=== PATIENT | female | born 1960 | race Caucasian/White ===

== ENCOUNTER 2017-02-16 16:16 | Inpatient (IN) | payer MEDICARE ==
[~2017-02-16] VITALS: Ht 152.4 cm; Wt 55.2 kg
[~2017-02-16 16:16] MED LIST: CITA20TA4 PO; CYAN1000P IM; LAMO25TA PO; LEVO125T3 PO; METO25 PO; PRAV20 PO; QUET100 PO; REME30TA PO; TOPI100T PO
[2017-02-16 16:25] VITALS: BP 115/74; PULSE 72; RESP 16; TEMP 98.6; O2SAT 95
[2017-02-16] MEDS ORDERED: ACETAMINOPHEN/HYDROcodone 325 MG/5 MG TAB PO ONE (16:45)
[2017-02-16] MEDS ORDERED: SODIUM CHLORIDE 0.9% FLUSH 10 ML FLUSH IVF PRN (16:45)
[2017-02-16 17:01] LABS: AUTOMATED NEUTROPHIL # 7.6 TH/MM3 (1.8-7.7); BASOPHIL # 0.2 TH/MM3 (0-0.2); BASOPHIL % 2.2 % (0.0-2.0); EOSINOPHIL # 0.2 TH/MM3 (0-0.4); EOSINOPHIL % 1.8 % (0.0-4.0); HEMO FLAGS DIFF FINAL; LYMPH % 21.9 % (9.0-44.0); LYMPHOCYTE # 2.3 TH/MM3 (1.0-4.8); MEAN CELL VOLUME 100.7 FL (80.0-100.0); MEAN CORPUSCULAR HEMOGLOBIN 34.1 PG (27.0-34.0); MEAN CORPUSCULAR HGB CONC 33.8 % (32.0-36.0); MONO % 3.6 % (0.0-8.0); NEUT % 70.5 % (16.0-70.0); PLATELET COUNT 237 TH/MM3 (150-450); RED BLOOD COUNT 4.47 MIL/MM3 (4.00-5.30); RED CELL DISTRIBUTION WIDTH 13.3 % (11.6-17.2); WHITE BLOOD COUNT 10.7 TH/MM3 (4.0-11.0)
--- NOTE | 2017-02-16 17:02 | PD ---
HPI Chief Complaint: Pain: Acute or Chronic Time Seen by Provider: 16:29 Travel History International Travel<30 days: No Contact w/Intl Traveler<30days: No Traveled to known affect area: No History of Present Illness HPI patient is a 56-year-old female tripped and fall while getting out of a lifted truck week ago. She states that it right on her knee. Initially ambulatory she 's had increased problems walking over the past week as well as swelling around her knee and calf. She states she's not had any shortness of breath and no history of blood clots. She is concerned that she might actually broke her kneecap. No history of STDs fever vaginal discharge or vaginal bleeding. Denies any head injury or neck injury. PFSH Past Medical History Hx Anticoagulant Therapy: No Bipolar Disorder: Yes Depression: Yes Cardiovascular Problems: Yes (CHOL) High Cholesterol: Yes Diabetes: No Endocrine: Yes Genitourinary: No Hypertension: Yes Musculoskeletal: No Neurologic: No Reproductive: No Respiratory: No Immunizations Current: Yes Thyroid Disease: Yes ?: Not Past Surgical History Abdominal Surgery: No Cardiac Surgery: No Genitourinary Surgery: No Gynecologic Surgery: Yes (hysterectomy) Hysterectomy: Yes Pacemaker: No Thoracic Surgery: No Other Surgery: Yes Social History Alcohol Use: No Tobacco Use: Yes (1ppd) Substance Use: No Allergies-Medications (Allergen,Severity, Reaction): Coded Allergies: penicillin G (Unverified Allergy, Severe, Anaphylaxis, 02/16/17) Reported Meds & Prescriptions Reported Meds & Active Scripts Active Reported Cyanocobalamin Inj (Cyanocobalamin) 1,000 Mcg/Ml Inj 1,000 Mcg SQ Q30D Cyanocobalamin Inj (Cyanocobalamin) 1,000 Mcg/Ml Inj 1,000 Mcg IM Q30D Lamotrigine 200 Mg Tab 200 Mg PO BID Topiramate 50 Mg Tab 100 Mg PO BID Mirtazapine 30 Mg Tab 30 Mg PO HS Levothyroxine (Levothyroxine Sodium) 125 Mcg Tab 125 Mcg PO DAILY Pravastatin 40 Mg Tab 40 Mg PO HS Metoprolol Tartrate 25 Mg Tab 25 Mg PO BID Citalopram (Citalopram Hydrobromide) 40 Mg Tab 60 Mg PO HS Review of Systems Except as stated in HPI: all other systems reviewed are Neg Physical Exam Narrative GENERAL: Well-developed well-nourished, no obvious distress. Smells cigarette smoke. SKIN: Focused skin assessment warm/dry. HEAD: Atraumatic. Normocephalic. EYES: Pupils equal and round. No scleral icterus. No injection or drainage. ENT: No nasal bleeding or discharge. Mucous membranes pink and moist. NECK: Trachea midline. No JVD. CARDIOVASCULAR: Regular rate and rhythm. No murmur appreciated. RESPIRATORY: No accessory muscle use. Clear to auscultation. Breath sounds equal bilaterally. GASTROINTESTINAL: Abdomen soft, non-tender, nondistended. Hepatic and splenic margins not palpable. MUSCULOSKELETAL: No obvious deformities. No clubbing. No cyanosis. There is a fair joint effusion and some warmth to the right knee is certainly not hot, no wound appreciated, some tenderness over the patella. Patient is able to flex the knee but is unable to extend.. No laxity of the joint. There is also some swelling over the calf on the right side, pulses motor and sensory intact distal to the knee and bilateral lower extremities.. The compartments are soft in the right lower extremity. No tenderness at the ankle nor the hip. Denies CT or L-spine tenderness. NEUROLOGICAL: Awake and alert. No obvious cranial nerve deficits. Motor grossly within normal limits. Normal speech. PSYCHIATRIC: Appropriate mood and affect; insight and judgment normal. Data Data Last Documented VS Vital Signs Date Time Temp Pulse Resp B/P (MAP) Pulse Ox O2 Delivery O2 Flow Rate FiO2 02/16/17 18:20 68 16 118/64 (82) 96 Room Air 02/16/17 16:25 98.6 Orders Orders Basic Metabolic Panel (Bmp) (02/16/17 16:41) Complete Blood Count With Diff (02/16/17 16:41) Prothrombin Time / Inr (Pt) (02/16/17 16:41) Act Partial Throm Time (Ptt) (02/16/17 16:41) Ecg Monitoring (02/16/17 16:41) Iv Access Insert/Monitor (02/16/17 16:41) Oximetry (02/16/17 16:41) Oxygen Administration (02/16/17 16:41) Sodium Chloride 0.9% Flush (Ns Flush) (02/16/17 16:45) Acetamin-Hydrocod 325-5 Mg (Swan 5-325 (02/16/17 16:45) Knee, Complete (4vws) (02/16/17 ) Us Leg Venous Doppler (02/16/17 16:41) ^ Knee Immobilizer (02/16/17 17:50) Consult Orthopedic (02/16/17 ) Electrocardiogram (02/16/17 ) Chest, Single Ap (02/16/17 ) Admit Order (Ed Use Only) (02/16/17 ) Labs Laboratory Tests Test 02/16/17 16:50 White Blood Count 10.7 TH/MM3 Red Blood Count 4.47 MIL/MM3 Hemoglobin 15.2 GM/DL Hematocrit 45.0 % Mean Corpuscular Volume 100.7 FL Mean Corpuscular Hemoglobin 34.1 PG Mean Corpuscular Hemoglobin Concent 33.8 % Red Cell Distribution Width 13.3 % Platelet Count 237 TH/MM3 Mean Platelet Volume 7.9 FL Neutrophils (%) (Auto) 70.5 % Lymphocytes (%) (Auto) 21.9 % Monocytes (%) (Auto) 3.6 % Eosinophils (%) (Auto) 1.8 % Basophils (%) (Auto) 2.2 % Neutrophils # (Auto) 7.6 TH/MM3 Lymphocytes # (Auto) 2.3 TH/MM3 Monocytes # (Auto) 0.4 TH/MM3 Eosinophils # (Auto) 0.2 TH/MM3 Basophils # (Auto) 0.2 TH/MM3 CBC Comment DIFF FINAL Differential Comment Prothrombin Time 10.7 SEC Prothromb Time International Ratio 1.1 RATIO Activated Partial Thromboplast Time 28.7 SEC Blood Urea Nitrogen 7 MG/DL Creatinine 0.80 MG/DL Random Glucose 94 MG/DL Calcium Level 9.4 MG/DL Sodium Level 138 MEQ/L Potassium Level 3.7 MEQ/L Chloride Level 108 MEQ/L Carbon Dioxide Level 23.7 MEQ/L Anion Gap 6 MEQ/L Estimat Glomerular Filtration Rate 74 ML/MIN MDM Medical Decision Making Medical Screen Exam Complete: Yes Emergency Medical Condition: Yes Differential Diagnosis Fall, contusion, sprain, strain, knee fracture, hemarthrosis, septic arthritis highly unlikely, DVT. Narrative Course Patient roomed emergency department, x-rays confirm a transverse fracture of the patella, patient unable to extend her knee, she does have some swelling of the lower extremity DVT is considered, ultrasound negative. Basic labs ordered , EKG and chest x-ray for preoperative screening, patient discussed with Dr. Grady who recommends admission to the main hospital for operative intervention tomorrow morning. Nothing by mouth after midnight, patient feeling better after pain medicine. Diagnosis Primary Impression: Transverse fracture of patella Qualified Codes: S82.031A - Displaced transverse fracture of right patella, initial encounter for closed fracture Admitting Information Admitting Physician Requests: Admit Scripts Hydrocodone/Acetaminophen (Hydrocodone-Acetamin 5-325 mg) 5 Mg-325 Mg Tablet 1 TAB PO Q4H Y for PAIN LESS THAN 5 ON SCALE, #40 TAB Prov: Ruben Severino MD 02/17/[address] (Aspirin EC) 325 Mg Tabdr 325 MG PO BID for Prevent Blood Clot, #60 TAB Prov: Ruben Severino MD 02/17/17 Condition: Stable Anjum Nair MD Feb 16, 2017 17:02
[2017-02-16] MEDS ORDERED: TOPI50TA7 PO (17:04)
[2017-02-16] MEDS ORDERED: PRAV40TA2 PO (17:04)
[2017-02-16] MEDS ORDERED: CITA40TA4 PO (17:04)
[2017-02-16] MEDS ORDERED: CYAN1000P IM (17:04)
[2017-02-16] MEDS ORDERED: LEVO125T4 PO (17:04)
[2017-02-16] MEDS ORDERED: MIRT30TA PO (17:04)
[2017-02-16] MEDS ORDERED: CYAN1000P SQ (17:04)
[2017-02-16] MEDS ORDERED: LAMO200T PO (17:04)
[2017-02-16] MEDS ORDERED: METO25TA3 PO (17:04)
[2017-02-16 17:06] VITALS: O2SAT 97
[2017-02-16 17:09] LABS: POTASSIUM 3.7 MEQ/L (3.5-5.1)
[2017-02-16 17:14] LABS: APTT (PATIENT) 28.7 SEC (24.3-30.1); INTERNATIONAL NORMALIZED RATIO 1.1 RATIO; PROTHROMBIN TIME - PATIENT 10.7 SEC (9.8-11.6)
[2017-02-16 17:15] LABS: BICARBONATE 23.7 MEQ/L (21.0-32.0)
[2017-02-16 17:20] VITALS: BP 123/74; PULSE 74; RESP 18; O2SAT 97
--- NOTE | 2017-02-16 17:38 | RADRPT ---
EXAM DATE/TIME: 02/16/2017 16:57 [facility] COMPARISON: No previous studies available for comparison. INDICATIONS : Trauma, fall forward. MEDICAL HISTORY : None. SURGICAL HISTORY : None. ENCOUNTER: Initial ACUITY: 1 week PAIN SCORE: 10/10 LOCATION: Right patella FINDINGS: A comminuted distracted fracture of the patella is identified. There is significant prepatellar soft tissue swelling and a moderate to large joint effusion. The distal femur and proximal tibia are intact. CONCLUSION: 1. Distracted fracture of the patella. 2. Large joint effusion and prepatellar soft tissue swelling. Eric Dunham MD on February 16, 2017 at 17:36 Board Certified Radiologist. This report was verified electronically.
--- NOTE | 2017-02-16 18:07 | RADRPT ---
EXAM DATE/TIME: 02/16/2017 17:30 [facility] COMPARISON: No previous studies available for comparison. INDICATIONS : Right leg pain. MEDICAL HISTORY : Hypercholesterolemia. Hypertension. Thyroid disease. Bipolar disorder. Depression. Tobacco use. SURGICAL HISTORY : Hysterectomy. Cholecystectomy. Blood transfusions. ENCOUNTER: Initial ACUITY: 1 week PAIN SCORE: 9/10 LOCATION: Right leg. TECHNIQUE: Venous ultrasound of the leg was performed from the inguinal ligament to the proximal calf. Real-meka e, color Doppler and spectral tracing, compression and augmentation techniques were used. FINDINGS: There is normal compressibility of the deep venous system from the inguinal region to the proximal ca lf. No echogenic clot is seen in the lumen of the common femoral, femoral, popliteal, and posterior tibial veins. There is a normal response of the venous system to proximal and distal augmentation an d respiration. There is a popliteal cyst measuring 2.1 x 0.9 x 1.8 cm. CONCLUSION: 1. No evidence of deep venous thrombosis within the right lower extremity. 2. 2.1 x 0.9 x 1.8 cm right popliteal cyst. Anujm Noguera MD on February 16, 2017 at 18:05 Board Certified Radiologist. This report was verified electronically.
[2017-02-16 18:20] VITALS: BP 118/64; PULSE 68; RESP 16; O2SAT 96
[2017-02-16] MEDS ORDERED: SODIUM CHLORIDE 0.9% FLUSH 10 ML FLUSH IV FLUSH PRN (20:00)
[2017-02-16] MEDS ORDERED: NALOXONE HCL 0.4 MG/ML AMP IV PUSH PRN (20:00)
[2017-02-16] MEDS: MORPHINE SULFATE 2 MG/ML INJ IV PUSH PRN (20:20)
[2017-02-16] MEDS: SODIUM CHLORIDE 0.9% FLUSH 10 ML FLUSH IV FLUSH SCH (20:20)
[2017-02-16 21:08] VITALS: BP 125/72; PULSE 64; RESP 16; O2SAT 94
--- NOTE | 2017-02-16 21:54 | RADRPT ---
EXAM DATE/TIME: 02/16/2017 19:39 [facility] COMPARISON: CHEST SINGLE AP, January 16, 2015, 23:07. INDICATIONS : Short of breath. MEDICAL HISTORY : None. SURGICAL HISTORY : None. ENCOUNTER: Initial ACUITY: 1 day PAIN SCORE: 0/10 LOCATION: Bilateral chest FINDINGS: A single view of the chest demonstrates the lungs to be symmetrically aerated without evidence of mas s, infiltrate or effusion. The cardiomediastinal contours are unremarkable. Osseous structures are intact. CONCLUSION: No acute disease. Anjum Noguera MD on February 16, 2017 at 21:53 Board Certified Radiologist. This report was verified electronically.
[2017-02-17] VITALS (10 sets, daily range): BP systolic 105–140; BP diastolic 61–79; PULSE 58–120; RESP 16; TEMP 97.2–98.4; O2SAT 93–98
[2017-02-17] MEDS: MORPHINE SULFATE 2 MG/ML INJ IV PUSH PRN ×3 (00:07→09:24)
[2017-02-17] MEDS ORDERED: POVIDONE IODINE 5% (ANTISEPSIS KIT) 4 APPLICATIONS EACH NARE PRN (00:45)
[2017-02-17] MEDS ORDERED: METOPROLOL TARTRATE 25 MG TAB PO PRN (00:45)
[2017-02-17] MEDS ORDERED: CHLORHEXIDINE GLUCONATE 2 % 1 PACK (2 CLOTHS) TOPICAL PRN (00:45)
[2017-02-17] MEDS ORDERED: SODIUM CHLORID 0.9% 500 ML IV PRN (00:45)
[2017-02-17] MEDS ORDERED: LACTATED RINGER'S 1000 ML IV PRN (00:45)
[2017-02-17] MEDS ORDERED: INSULIN HUMAN REGULAR 1,000 UNITS/10 ML VIAL SQ PRN (00:45)
[2017-02-17] MEDS: SODIUM CHLORIDE 0.9% FLUSH 10 ML FLUSH IV FLUSH SCH ×2 (09:21→20:42)
[2017-02-17] MEDS ORDERED: BISACODYL 10 MG SUPP RECTAL PRN (09:30)
[2017-02-17] MEDS ORDERED: ACETAMINOPHEN/HYDROcodone 325 MG/10 MG TAB PO PRN (09:30)
[2017-02-17] MEDS ORDERED: MAGNESIUM HYDROXIDE SUSP 30 ML CUP PO PRN ×2 (09:30→14:30)
[2017-02-17] MEDS ORDERED: LACTULOSE SYRUP 20 GM/30 ML CUP PO PRN (09:30)
[2017-02-17] MEDS ORDERED: ENALAPRILAT 1.25 MG/ML VIAL IV PUSH PRN (09:30)
[2017-02-17] MEDS ORDERED: LORazepam 2 MG/ML VIAL IV PUSH PRN (09:30)
[2017-02-17] MEDS ORDERED: ACETAMINOPHEN/HYDROcodone 325 MG/5 MG TAB PO PRN ×2 (09:30→14:30)
[2017-02-17] MEDS ORDERED: ONDANSETRON HCL 4 MG/2 ML VIAL IVP PRN ×2 (09:30→14:30)
[2017-02-17] MEDS ORDERED: cloNIDine HCL 0.1 MG TAB PO PRN (09:30)
[2017-02-17] MEDS ORDERED: METOPROLOL TARTRATE 25 MG TAB PO ONE (09:30)
[2017-02-17] MEDS ORDERED: MORPHINE SULFATE 2 MG/ML INJ IV PUSH PRN ×2 (09:30)
[2017-02-17] MEDS ORDERED: ACETAMINOPHEN 325 MG TAB PO PRN ×2 (09:30)
[2017-02-17] MEDS: lamoTRIgine 100 MG TAB PO SCH ×2 (09:30→20:42)
[2017-02-17] MEDS ORDERED: SENNOSIDES 8.6 MG TAB PO PRN (09:30)
[2017-02-17] MEDS ORDERED: TOPIRAMATE 25 MG TAB PO SCH (09:30)
--- NOTE | 2017-02-17 09:44 | HHI.HP ---
[facility] Luis M Lyons MD Admission Diagnosis Patella Fracture Diagnoses: Chief Complaint: Right knee pain Travel History International Travel<30 Days: No Contact w/Intl Traveler <30 Da: No Traveled to Known Affected Are: No History of Present Illness This is a 56-year-old female with a history of bipolar disorder, hyperlipidemia , hypertension and hypothyroidism. About a week ago, she was getting off from a lifted truck when she slipped and fell on her right knee. She then developed pain and swelling with difficulty ambulating. She reports of severe excruciating right knee pain when she walks and bears weight. Denies any other injury. Workup shows patella fracture and orthopedic surgery plans to do surgical repair today. All other systems negative Review of Systems Except as stated in HPI: all other systems reviewed are Neg Past Family Social History Past Medical History As previously mentioned Past Surgical History Hysterectomy Reported Medications Reported Meds & Active Scripts Active Reported Cyanocobalamin Inj (Cyanocobalamin) 1,000 Mcg/Ml Inj 1,000 Mcg SQ Q30D Cyanocobalamin Inj (Cyanocobalamin) 1,000 Mcg/Ml Inj 1,000 Mcg IM Q30D Lamotrigine 200 Mg Tab 200 Mg PO BID Topiramate 50 Mg Tab 100 Mg PO BID Mirtazapine 30 Mg Tab 30 Mg PO HS Levothyroxine (Levothyroxine Sodium) 125 Mcg Tab 125 Mcg PO DAILY Pravastatin 40 Mg Tab 40 Mg PO HS Metoprolol Tartrate 25 Mg Tab 25 Mg PO BID Citalopram (Citalopram Hydrobromide) 40 Mg Tab 60 Mg PO HS Allergies: Coded Allergies: penicillin G (Unverified Allergy, Severe, Anaphylaxis, 02/16/17) Family History hypertension Social History Smokes a pack per day. Does not use alcohol Physical Exam Vital Signs Vital Signs Date Time Temp Pulse Resp B/P (MAP) Pulse Ox O2 Delivery O2 Flow Rate FiO2 02/17/17 08:00 97.5 74 16 122/74 (90) 93 02/17/17 05:04 97.5 61 16 125/61 (82) 96 02/17/17 01:07 98.4 65 16 140/75 (96) 97 02/17/17 00:51 58 02/16/17 21:08 64 16 125/72 (89) 94 Room Air 02/16/17 20:36 16 02/16/17 18:20 68 16 118/64 (82) 96 Room Air 02/16/17 17:58 16 02/16/17 17:20 74 18 123/74 (90) 97 Room Air 02/16/17 17:06 97 Room Air 02/16/17 17:06 Room Air 02/16/17 16:25 98.6 72 16 115/74 (88) 95 Physical Exam GENERAL: This is a well-nourished, well-developed patient, in no apparent distress. SKIN: No rashes, ecchymoses or lesions. Cool and dry. HEAD: Atraumatic. Normocephalic. No temporal or scalp tenderness. EYES: Pupils equal round and reactive. Extraocular motions intact. No scleral icterus. No injection or drainage. ENT: Nose without bleeding, purulent drainage or septal hematoma. Throat without erythema, tonsillar hypertrophy or exudate. Uvula midline. Airway patent. NECK: Trachea midline. No JVD or lymphadenopathy. Supple, nontender, no meningeal signs. CARDIOVASCULAR: Regular rate and rhythm without murmurs, gallops, or rubs. RESPIRATORY: Clear to auscultation. Breath sounds equal bilaterally. No wheezes , rales, or rhonchi. GASTROINTESTINAL: Abdomen soft, non-tender, nondistended. No guarding. MUSCULOSKELETAL: Extremities without clubbing, cyanosis, or edema. Right knee in immobilizer NEUROLOGICAL: Awake and alert. Cranial nerves II through XII intact. Motor and sensory grossly within normal limits. Five out of 5 muscle strength in all muscle groups. Normal speech. Laboratory Laboratory Tests Test 02/16/17 16:50 02/17/17 08:54 White Blood Count 10.7 Red Blood Count 4.47 Hemoglobin 15.2 Hematocrit 45.0 Mean Corpuscular Volume 100.7 Mean Corpuscular Hemoglobin 34.1 Mean Corpuscular Hemoglobin Concent 33.8 Red Cell Distribution Width 13.3 Platelet Count 237 Mean Platelet Volume 7.9 Neutrophils (%) (Auto) 70.5 Lymphocytes (%) (Auto) 21.9 Monocytes (%) (Auto) 3.6 Eosinophils (%) (Auto) 1.8 Basophils (%) (Auto) 2.2 Neutrophils # (Auto) 7.6 Lymphocytes # (Auto) 2.3 Monocytes # (Auto) 0.4 Eosinophils # (Auto) 0.2 Basophils # (Auto) 0.2 CBC Comment DIFF FINAL Differential Comment Prothrombin Time 10.7 Prothromb Time International Ratio 1.1 Activated Partial Thromboplast Time 28.7 Blood Urea Nitrogen 7 Creatinine 0.80 Random Glucose 94 Calcium Level 9.4 Sodium Level 138 Potassium Level 3.7 Chloride Level 108 Carbon Dioxide Level 23.7 Anion Gap 6 Estimat Glomerular Filtration Rate 74 Result Diagram: 02/16/17 [id number]/171649 Imaging Last Impressions Lower Extremity Ultrasound 02/16/17 164 Signed Impressions: Service Date/Time: Thursday, February 16, 2017 17:30 - CONCLUSION: 1. No evidence of deep venous thrombosis within the right lower extremity. 2. 2.1 x 0.9 x 1.8 cm right popliteal cyst. Anjum Noguera MD Knee X-Ray 02/16/17 0000 Signed Impressions: Service Date/Time: Thursday, February 16, 2017 16:57 - CONCLUSION: 1. Distracted fracture of the patella. 2. Large joint effusion and prepatellar soft tissue swelling. Eric Dunham MD Chest X-Ray 02/16/17 0000 Signed Impressions: Service Date/Time: Thursday, February 16, 2017 19:39 - CONCLUSION: No acute disease. Anjum Noguera MD Caprini VTE Risk Assessment Caprini VTE Risk Assessment: Mod/High Risk (score >= 2) Caprini Risk Assessment Model Point Value = 1 Point Value = 2 Point Value = 3 Point Value = 5 Age 41-60 Minor surgery BMI > 25 kg/m2 Swollen legs Varicose veins or History of unexplained or recurrent spontaneous Oral contraceptives or hormone replacement Sepsis (< 1 month) Serious lung disease, including pneumonia (< 1 month) Abnormal pulmonary function Acute myocardial infarction Congestive heart failure (< 1 month) History of inflammatory bowel disease Medical patient at bed rest Age 61-74 Arthroscopic surgery Major open surgery (> 45 min) Laparoscopic surgery (> 45 min) Malignancy Confined to bed (> 72 hours) Immobilizing plaster cast Central venous access Age >= 75 History of VTE Family history of VTE Factor V Leiden Prothrombin [id number] Lupus anticoagulant Anticardiolipin antibodies Elevated serum homocysteine Heparin-induced thrombocytopenia Other congenital or acquired thrombophilia Stroke (< 1 month) Elective arthroplasty Hip, pelvis, or leg fracture Acute spinal cord injury (< 1 month) Prophylaxis Regimen Total Risk Factor Score Risk Level Prophylaxis Regimen 0-1 Low Early ambulation 2 Moderate Order ONE of the following: *Sequential Compression Device (SCD) *Heparin 5000 units SQ BID 3-4 Higher Order ONE of the following medications: *Heparin 5000 units SQ TID *Enoxaparin/Lovenox 40 mg SQ daily (WT < 150 kg, CrCl > 30 mL/min) *Enoxaparin/Lovenox 30 mg SQ daily (WT < 150 kg, CrCl > 10-29 mL/min) *Enoxaparin/Lovenox 30 mg SQ BID (WT < 150 kg, CrCl > 30 mL/min) AND/OR *Sequential Compression Device (SCD) 5 or more Highest Order ONE of the following medications: *Heparin 5000 units SQ TID (Preferred with Epidurals) *Enoxaparin/Lovenox 40 mg SQ daily (WT < 150 kg, CrCl > 30 mL/min) *Enoxaparin/Lovenox 30 mg SQ daily (WT < 150 kg, CrCl > 10-29 mL/min) *Enoxaparin/Lovenox 30 mg SQ BID (WT < 150 kg, CrCl > 30 mL/min) AND *Sequential Compression Device (SCD) Assessment and Plan Problem List: (1) Transverse fracture of patella ICD Code: S82.033A - Displaced transverse fracture of unspecified patella, initial encounter for closed fracture Status: Acute Assessment and Plan This is a 56-year-old female who complained of right knee pain after she slipped and fell on her right knee. Imaging study shows patella fracture Right patella fracture status post fall. Nothing by mouth for surgical repair. Pain management with Lortab and IV morphine. DVT prophylaxis per orthopedic surgery. Chest x-ray image reviewed without acute findings. EKG tracing reviewed with sinus rhythm Bipolar disorder. Stable continue Lamictal, Topamax, Celexa and Remeron Hyperlipidemia. Stable continue Pravachol. Hypertension. Stable continue metoprolol Hypothyroidism. Stable continue Synthroid Tobacco abuse. Counseled. Nicotinic patch Discussed Condition With pt Problem Qualifiers (1) Transverse fracture of patella: Qualified Codes: S82.031A - Displaced transverse fracture of right patella, initial encounter for closed fracture Luis M Vines MD Feb 17, 2017 09:44
[2017-02-17] MEDS: REMOVE OLD PATCH T-DERMAL SCH (09:45)
[2017-02-17] MEDS: NICOTINE 21 MG/24 HR PATCH T-DERMAL SCH (09:45)
[2017-02-17 10:02] LABS: BICARBONATE 22.2 MEQ/L (21.0-32.0); POTASSIUM 3.6 MEQ/L (3.5-5.1)
[2017-02-17 10:08] LABS: AUTOMATED NEUTROPHIL # 4.4 TH/MM3 (1.8-7.7); BASOPHIL % 0.4 % (0.0-2.0); EOSINOPHIL # 0.1 TH/MM3 (0-0.4); HEMATOCRIT 46.4 % (35.0-46.0); HEMO FLAGS DIFF FINAL; LYMPHOCYTE # 2.2 TH/MM3 (1.0-4.8); MEAN CELL VOLUME 104.1 FL (80.0-100.0); MEAN CORPUSCULAR HEMOGLOBIN 34.4 PG (27.0-34.0); MEAN CORPUSCULAR HGB CONC 33.1 % (32.0-36.0); MONO % 6.5 % (0.0-8.0); NEUT % 60.1 % (16.0-70.0); PLATELET COUNT 209 TH/MM3 (150-450); RED BLOOD COUNT 4.45 MIL/MM3 (4.00-5.30); RED CELL DISTRIBUTION WIDTH 13.9 % (11.6-17.2); WHITE BLOOD COUNT 7.3 TH/MM3 (4.0-11.0)
[2017-02-17] MEDS: TOPIRAMATE 100 MG TAB PO SCH ×2 (10:50→20:42)
[2017-02-17] MEDS ORDERED: FAMOTIDINE 20 MG/2 ML VIAL ONE (12:44)
[2017-02-17] MEDS ORDERED: ACETAMINOPHEN 1000 MG/100 ML 100 ML IV ONE (12:45)
[2017-02-17] MEDS ORDERED: CLINDAMYCIN PHOS 600 MG/4 ML VIAL ONE (13:09)
[2017-02-17] MEDS ORDERED: GENTAMICIN SULFATE 80 MG/2 ML VIAL ONE (13:44)
--- NOTE | 2017-02-17 14:25 | PD.CONS ---
HPI Service Orthopedic Surgeons Consult Requested By Reason for Consult Fracture of the right patella Primary Care Physician Luis M Lyons MD Admission Diagnosis Patella Fracture Diagnoses: (1) Transverse fracture of patella Chief Complaint: Pain in the right knee after fall and swelling with weakness History of Present Illness This patient is a 56-year-old female who several days ago fell sustaining an injury to her right knee. She initially did not seek medical attention. She noted progressive weakness discomforts and swelling. She presented to [facility] emergency room yesterday. X-rays showed evidence of a mildly comminuted transverse patella fracture. She was admitted to the medical service and I have been asked see her in consultation regarding her right patella fracture Review of Systems Constitutional: DENIES: Diaphoretic episodes, Fatigue, Fever, Weight gain, Weight loss, Chills, Dizziness, Change in appetite, Night Sweats Endocrine: DENIES: Abnorml menstrual pattern, Heat/cold intolerance, Polydipsia , Polyuria, Polyphagia Eyes: DENIES: Blurred vision, Diplopia, Eye inflammation, Eye pain, Vision loss , Photosensitivity, Double Vision Ears, nose, mouth, throat: DENIES: Tinnitus, Hearing loss, Vertigo, Nasal discharge, Oral lesions, Throat pain, Hoarseness, Ear Pain, Running Nose, Epistaxis, Sinus Pain, Toothache, Odynophagia Respiratory: DENIES: Apneas, Cough, Snoring, Wheezing, Hemoptysis, Sputum production, Shortness of breath Cardiovascular: DENIES: Chest pain, Palpitations, Syncope, Dyspnea on Exertion , PND, Lower Extremity Edema, Orthopnea, Claudication Gastrointestinal: DENIES: Abdominal pain, Black stools, Bloody stools, Constipation, Diarrhea, Nausea, Vomiting, Difficulty Swallowing, Anorexia Genitourinary: DENIES: Abnormal vaginal bleeding, Dysmenorrhea, Dyspareunia, Sexual dysfunction, Urinary frequency, Urinary incontinence, Urgency, Hematuria , Dysuria, Nocturia, Vaginal discharge Musculoskeletal: COMPLAINS OF: Joint pain Integumentary: DENIES: Abnormal pigmentation, Pruritus, Rash, Nail changes, Breast masses, Breast skin changes, Nipple discharge Hematologic/lymphatic: DENIES: Bruising, Lymphadenopathy Immunologic/allergic: DENIES: Eczema, Urticaria Neurologic: DENIES: Abnormal gait, Headache, Localized weakness, Paresthesias, Seizures, Speech Problems, Tremor, Poor Balance Psychiatric: DENIES: Anxiety, Confusion, Mood changes, Depression, Hallucinations, Agitation, Suicidal Ideation, Homicidal Ideation, Delusions Past Family Social History Past Medical History As previously mentioned Past Surgical History Hysterectomy Allergies: Coded Allergies: penicillin G (Unverified Allergy, Severe, Anaphylaxis, 02/16/17) Active Ordered Medications Current Medications Medications (Trade) Dose Ordered Sig/Jerad Route Start Time Stop Time Status Last Admin (NS Flush) 2 ml UNSCH PRN IV FLUSH 02/16/17 20:00 (NS Flush) 2 ml BID IV FLUSH 02/16/17 21:00 02/17/17 09:21 (Narcan Inj) 0.4 mg UNSCH PRN IV PUSH 02/16/17 20:00 (Morphine Inj) 2 mg Q3H PRN IV PUSH 02/16/17 20:00 02/17/17 09:24 Lactated Ringer's 1,000 ml @ 30 mls/hr Q24H PRN IV 02/17/17 00:45 02/20/17 00:44 Sodium Chloride 500 ml @ 30 mls/hr [id number] PRN IV 02/17/17 00:45 02/20/17 00:44 (Lopressor) 25 mg [employer]OVELTY [employer]ING MACHINE OPERATOR PRN PO 02/17/17 00:45 02/20/17 00:44 (Betadine 5% Antisepsis Kit) 1 applic [employer]EL[employer]ING MACHINE OPERATOR PRN EACH NARE 02/17/17 00:45 02/20/17 00:44 (Chlorhexidine 2% Cloth) 3 pack [employer]ING MACHINE OPERATOR PRN TOPICAL 02/17/17 00:45 02/20/17 00:44 (NovoLIN R INJ) See Protocol Table ... [employer]OVEL[employer]ING MACHINE OPERATOR PRN SQ 02/17/17 00:45 02/20/17 00:44 (Tylenol) 650 mg Q4H PRN PO 02/17/17 09:30 (Zofran Inj) 4 mg Q6H PRN IVP 02/17/17 09:30 (Tylenol) 650 mg Q6H PRN PO 02/17/17 09:30 (Bivins 5-325 Mg) 1 tab Q4H PRN PO 02/17/17 09:30 (Bivins 10-325 Mg) 1 tab Q4H PRN PO 02/17/17 09:30 (Morphine Inj) 1 mg Q3H PRN IV PUSH 02/17/17 09:30 (Morphine Inj) 2 mg Q3H PRN IV PUSH 02/17/17 09:30 (Gely-Colace) 1 tab BID PO 02/17/17 21:00 (Milk Of Magnesia Liq) 30 ml Q12H PRN PO 02/17/17 09:30 (Senokot) 17.2 mg Q12H PRN PO 02/17/17 09:30 (Dulcolax Supp) 10 mg DAILY PRN RECTAL 02/17/17 09:30 (Lactulose Liq) 30 ml DAILY PRN PO 02/17/17 09:30 (Vasotec Inj) 1.25 mg Q6H PRN IV PUSH 02/17/17 09:30 (Catapres) 0.1 mg Q6H PRN PO 02/17/17 09:30 (CeleXA) 60 mg HS PO 02/17/17 21:00 (LaMICtal) 200 mg BID PO 02/17/17 09:30 (Synthroid) 125 mcg DAILY@0600 PO 02/18/17 06:00 (Lopressor) 25 mg BID PO 02/17/17 21:00 (Remeron) 30 mg HS PO 02/17/17 21:00 (Pravachol) 40 mg HS PO 02/17/17 21:00 (Habitrol 21 Mg Patch.24 Hr) 1 patch DAILY T-DERMAL 02/17/17 09:45 Miscellaneous Information 1 DAILY T-DERMAL 02/17/17 09:45 (Topamax) 100 mg BID PO 02/17/17 10:50 Reported Meds & Active Scripts Active Reported Cyanocobalamin Inj (Cyanocobalamin) 1,000 Mcg/Ml Inj 1,000 Mcg SQ Q30D Cyanocobalamin Inj (Cyanocobalamin) 1,000 Mcg/Ml Inj 1,000 Mcg IM Q30D Lamotrigine 200 Mg Tab 200 Mg PO BID Topiramate 50 Mg Tab 100 Mg PO BID Mirtazapine 30 Mg Tab 30 Mg PO HS Levothyroxine (Levothyroxine Sodium) 125 Mcg Tab 125 Mcg PO DAILY Pravastatin 40 Mg Tab 40 Mg PO HS Metoprolol Tartrate 25 Mg Tab 25 Mg PO BID Citalopram (Citalopram Hydrobromide) 40 Mg Tab 60 Mg PO HS Family History hypertension Social History Smokes a pack per day. Does not use alcohol Physical Exam Vital Signs Vital Signs Date Time Temp Pulse Resp B/P (MAP) Pulse Ox O2 Delivery O2 Flow Rate FiO2 02/17/17 08:00 97.5 74 16 122/74 (90) 93 02/17/17 05:04 97.5 61 16 125/61 (82) 96 02/17/17 01:07 98.4 65 16 140/75 (96) 97 02/17/17 00:51 58 02/16/17 21:08 64 16 125/72 (89) 94 Room Air 02/16/17 20:36 16 02/16/17 18:20 68 16 118/64 (82) 96 Room Air 02/16/17 17:58 16 02/16/17 17:20 74 18 123/74 (90) 97 Room Air 02/16/17 17:06 97 Room Air 02/16/17 17:06 Room Air 02/16/17 16:25 98.6 72 16 115/74 (88) 95 Physical Exam HEENT: Normocephalic atraumatic pupils equal round reactive. NECK: Supple. No abnormal masses. Full range of motion. CHEST: Clear to auscultation with no rales or rhonchi's or wheezes. HEART: Regular rate and rhythm. No murmurs. ABDOMEN: Soft, nontender, no masses. Normal active bowel sounds. GENITOURINARY: Deferred MUSCULOSKELETAL: Right knee is in a knee immobilizer. Mild swelling is seen. Distal sensation is normal. No skin changes. Dorsalis pedis 1+. Laboratory Laboratory Tests Test 02/16/17 16:50 02/17/17 08:54 White Blood Count 10.7 7.3 Red Blood Count 4.47 4.45 Hemoglobin 15.2 15.3 Hematocrit 45.0 46.4 Mean Corpuscular Volume 100.7 104.1 Mean Corpuscular Hemoglobin 34.1 34.4 Mean Corpuscular Hemoglobin Concent 33.8 33.1 Red Cell Distribution Width 13.3 13.9 Platelet Count 237 209 Mean Platelet Volume 7.9 8.0 Neutrophils (%) (Auto) 70.5 60.1 Lymphocytes (%) (Auto) 21.9 31.0 Monocytes (%) (Auto) 3.6 6.5 Eosinophils (%) (Auto) 1.8 2.0 Basophils (%) (Auto) 2.2 0.4 Neutrophils # (Auto) 7.6 4.4 Lymphocytes # (Auto) 2.3 2.2 Monocytes # (Auto) 0.4 0.5 Eosinophils # (Auto) 0.2 0.1 Basophils # (Auto) 0.2 0.0 CBC Comment DIFF FINAL DIFF FINAL Differential Comment Prothrombin Time 10.7 Prothromb Time International Ratio 1.1 Activated Partial Thromboplast Time 28.7 Blood Urea Nitrogen 7 11 Creatinine 0.80 0.69 Random Glucose 94 89 Calcium Level 9.4 9.1 Sodium Level 138 140 Potassium Level 3.7 3.6 Chloride Level 108 112 Carbon Dioxide Level 23.7 22.2 Anion Gap 6 6 Estimat Glomerular Filtration Rate 74 88 Result Diagram: 02/17/17 0854 02/17/17 0854 Imaging X-rays reviewed and review of the radiologist interpretation shows evidence of a mildly comminuted transverse fracture of the right patella with moderate displacement of greater than 1.5 cm Assessment & Plan Assessment and Plan Fracture right patella, displaced, transverse, mildly comminuted. PLAN: Surgical treatment or open treatment internal fixation with cannulated screws and cerclage wires using modified tension band technique. Consent: There are risks with surgery including infection bleeding loss of motion, continued pain, need for further surgery, failure proper, failure of fixation, neurologic or vascular injury. The patient understands these issues and wishes to proceed forward with surgery as outlined above. Anticipate enteric coated aspirin for approximately 30 days after surgery. She will be partial weightbearing with a knee immobilizer. Ruben Severino MD Feb 17, 2017 14:25
[2017-02-17] MEDS ORDERED: MORPHINE SULFATE 8 MG/ML INJ IV PUSH PRN (14:30)
[2017-02-17] MEDS ORDERED: NALOXONE HCL 0.4 MG/ML AMP IV PUSH PRN (14:30)
[2017-02-17] MEDS ORDERED: diphenhydrAMINE HCL 25 MG CAP PO PRN (14:30)
[2017-02-17] MEDS ORDERED: Post-op Orders (for Pharmacy) MISC XX ONE (14:30)
--- NOTE | 2017-02-17 14:30 | PD.OP ---
cc: Ruben Severino MD Operative Report Date of Surgery: Feb 17, 2017 Preoperative Diagnosis: Fracture right patella, transverse, comminuted Postoperative Diagnosis: Same Procedure: Open treatment internal fixation right patella fracture with cannulated screws and modified tension band technique Anesthesia: Gen. Surgeon: Ruben Severino Technical Adjuster(s): BROOKLYNN Holt Operation and Findings: EBL: 50 cc INDICATION: This patient is a 56-year-old female who injured her right knee several days ago. She presented to the emergency from yesterday was found have evidence of a displaced patella fracture. She presents now for surgical treatment. NOTE: Ana Holt PA-C was present for the entire surgical procedure as my physician assistant psychiatry. In my medical opinion her skill and care was necessary for the proper management of this patient. PROCEDURE: The patient brought to the operating room and anesthetized in the supine position. The right leg was visualized under fluoroscopy. Antibiotics were given within an one hour time window and a timeout was done. After exsanguination, the interval tourniquet was inflated to 250 mmHg. An anterior incision was made. The patella was exposed. Callus was curetted. The fragment was brought into reduced position and held. Multiple clamps were utilized using fluoroscopy to confirm that there was good continuity of the articular surface. Multiple pins were used for provisional fixation anticipating cannulated screws. These were carefully measured and the proximal cortex was drilled. Screws were placed approximately 1-2 mm just short of the cortical surface. 18-gauge wire was placed through the cannulated screws. A total of 3 screws were utilized. A modified tension band technique was used using the outer 2 screws and a single tension band in the middle screw. There was moderate comminution but this technique allowed us to brought back to near anatomic position. The fascia was closed with interrupted #1 Vicryl suture The wound was irrigated copiously and hemostasis was controlled. Intraoperative imaging showed anatomic reduction. Alignment was satisfactory. Subcutaneous tissue was approximated with number with interrupted 2-0 Vicryl suture and skin with metallic donald. A knee immobilizer was fitted and applied. The patient was awakened and taken to recovery room satisfactory condition. The sponge count and needle count and sponge counts were all correct FINDINGS: The patient's patella fracture was moderately comminuted. The tension band technique held everything in very satisfactory alignment and position. There was no complication that was appreciated. Ruben Severino MD Feb 17, 2017 14:29
[2017-02-17] MEDS ORDERED: ASPI325T33 PO (14:31)
[2017-02-17] MEDS ORDERED: HYDR-3516 PO (14:31)
[2017-02-17] MEDS ORDERED: DO NOT ADM ANY ANTICOAGULANT DRUGS PRN (14:44)
[2017-02-17] MEDS: LACTATED RINGER'S 1000 ML INJ 1,000 ML IV SCH (15:00)
[2017-02-17] MEDS ORDERED: *morphine SULFATE 8 MG/ML PERIprocedure ONLY ONE (15:09)
--- NOTE | 2017-02-17 15:59 | RADRPT ---
EXAM DATE/TIME: 02/17/2017 14:09 [place] COMPARISON: No previous studies available for comparison. INDICATIONS : Right patella fracture repair with screws and wire wrap. OR. MEDICAL HISTORY : Hypertension. SURGICAL HISTORY : None. ENCOUNTER: Initial ACUITY: 1 day PAIN SCORE: Non-responsive. LOCATION: Right patella FINDINGS: Two view examination intraoperative OEC images of the right knee demonstrate 3 osseous screws and cer clage wires securing an apparent patellar fracture. Fracture fragments are in excellent anatomic alig nment. CONCLUSION: Open reduction and internal fixation of patellar fracture as above. Albert Corey MD on February 17, 2017 at 15:57 Board Certified Radiologist. This report was verified electronically.
--- NOTE | 2017-02-17 16:04 | EKG ---
Date Performed: 02/16/2017 Time Performed: 19:43:15 PTAGE: 56 years EKG: Sinus rhythm NORMAL ECG Since PREVIOUS TRACING , no significant change noted PREVIOUS TRACIN01/17/2015 04.54 DOCTOR: Geraldo Vasques Interpretating Date/Time 02/17/2017 16:03:14
[2017-02-17] MEDS: CALCIUM/VITAMIN D 250 MG/125 U TAB PO SCH (18:00)
[2017-02-17] MEDS: ASPIRIN EC 325 MG TABEC PO SCH (20:36)
[2017-02-17] MEDS: METOPROLOL TARTRATE 25 MG TAB PO SCH (20:36)
[2017-02-17] MEDS: DOCUSATE SODIUM 50 MG/SENNA 8.6 MG TAB PO SCH (20:40)
[2017-02-17] MEDS ORDERED: PRAVASTATIN SOD 40 MG TAB PO SCH (21:00)
[2017-02-17] MEDS ORDERED: MIRTAZAPINE 15 MG TAB PO SCH (21:00)
[2017-02-17] MEDS ORDERED: DOCUSATE SODIUM 50 MG/SENNA 8.6 MG TAB PO SCH (21:00)
[2017-02-17] MEDS ORDERED: CITALOPRAM HYDROBROMIDE 20 MG TAB PO SCH (21:00)
[2017-02-17] MEDS ORDERED: CLINDAMYCIN 600 MG/DEX PREMIX 50 ML IV SCH (22:30)
[2017-02-17] MEDS: CLINDAMYCIN 600 MG/NS PREMIX 50 ML IV SCH (23:12)
[2017-02-18] VITALS (9 sets, daily range): BP systolic 119–138; BP diastolic 64–72; PULSE 60–72; RESP 16–17; TEMP 96.5–97.9; O2SAT 95–96
[2017-02-18] MEDS: LACTATED RINGER'S 1000 ML INJ 1,000 ML IV SCH ×2 (00:19→10:19)
[2017-02-18] MEDS: ACETAMINOPHEN/HYDROcodone 325 MG/5 MG TAB PO PRN ×3 (00:25→17:38)
[2017-02-18] MEDS ORDERED: LEVOTHYROXINE SODIUM 125 MCG TAB PO SCH (06:00)
[2017-02-18] MEDS: CLINDAMYCIN 600 MG/NS PREMIX 50 ML IV SCH (06:28)
--- NOTE | 2017-02-18 08:04 | PD.ORT.PN ---
Subjective Post Op Day #: 1 Subjective Remarks Doing well. Lying in bed. Pain under control Objective Vitals Vital Signs Date Time Temp Pulse Resp B/P (MAP) Pulse Ox O2 Delivery O2 Flow Rate FiO2 02/18/17 04:00 97.4 67 17 119/64 (82) 96 02/18/17 03:58 62 02/18/17 00:45 64 02/18/17 00:00 96.5 68 16 123/65 (84) 95 02/17/17 20:00 97.6 64 16 105/79 (88) 97 02/17/17 19:43 77 02/17/17 17:05 97 Nasal Cannula 2.00 02/17/17 16:30 97.2 120 16 125/78 (94) 98 02/17/17 16:15 97.6 60 16 148/75 (99) 97 Nasal Cannula 2 02/17/17 16:00 59 16 147/70 (95) 96 Nasal Cannula 2 02/17/17 15:45 57 16 150/73 (98) 95 Nasal Cannula 2 02/17/17 15:30 59 16 156/78 (104) 95 Nasal Cannula 2 02/17/17 15:15 58 16 157/81 (106) 98 Nasal Cannula 3 02/17/17 15:00 62 17 165/79 (107) 96 Nasal Cannula 3 02/17/17 14:50 69 17 160/77 (104) 95 Nasal Cannula 3 02/17/17 14:44 97.5 71 18 174/78 (110) 98 Simple Mask 7 02/17/17 12:00 97.8 60 16 115/65 (82) 98 02/17/17 09:20 58 I/O 02/17/17 02/17/17 02/17/17 02/18/17 02/18/17 02/18/17 07:00 15:00 23:00 07:00 15:00 23:00 Intake Total 1000 ml 480 ml 600 ml Output Total 50 ml Balance 950 ml 480 ml 600 ml Intake Oral 480 ml 600 ml IV Total 1000 ml Estimated Blood Loss 50 ml # Voids 0 2 Result Diagram: 02/17/17 0854 02/17/17 0854 Objective Remarks Dressing dry. Mild swelling. Neurological exam is normal. No abnormal distal swelling or calf tenderness Assessment & Plan Ortho Post Op Day #: 1 Problem List: Assessment and Plan Fracture right patella, displaced, transverse, mildly comminuted. PLAN: 50% weightbearing. No dressing change. Okay to discharge to home. Aspirin for anticoagulation. Hoffman for pain. Prescription written. Follow-up in 2 weeks. Will need Walker Ruben Severino MD Feb 18, 2017 08:04
--- NOTE | 2017-02-18 08:16 | HHI.DCPOC ---
Discharge Care Plan Diagnosis: (1) Transverse fracture of patella Your Health Problems Are: Difficulty with ADL Exercise Tolerance Goals to Promote Your Health * To prevent worsening of your condition and complications * To maintain your health at the optimal level Directions to Meet Your Goals Take your medications as prescribed Follow your dietary instruction Follow activity as directed Keep your appointments as scheduled Take your immunizations and boosters as scheduled If your symptoms worsen call your PCP, if no PCP go to Urgent Care Center or Emergency Room Smoking is Dangerous to Your Health. Avoid second hand smoke Call the 24-hour hour crisis hotline for domestic abuse at Luis M Vines MD Feb 18, 2017 08:16
--- NOTE | 2017-02-18 08:16 | HHI.FF ---
Face to Face Verification Diagnosis: (1) Transverse fracture of patella Physical Therapy Order: Evaluate and Treat, Improve ambulation, Strength and gait training Home Health Nursing Order: Medical education Signs/symptoms of disease process Medication education-adverse effect Wound care and dressing changes Nursing assessment with vital signs I have seen patient Winter Tarango on 02/18/17. My clinical findings support the need for the requested home health care services because: Deconditioned w/ increased weakness I certify that my clinical findings support that this patient is homebound because: Unsteady gait/balance Luis M Vines MD Feb 18, 2017 08:16
[2017-02-18] MEDS ORDERED: WALKER WHEELS/F1 MIS (08:18)
[2017-02-18] MEDS: REMOVE OLD PATCH T-DERMAL SCH (09:00)
[2017-02-18] MEDS ORDERED: MULTIVITAMINS/MINERALS THERAPEUTIC TAB PO SCH (09:00)
--- NOTE | 2017-02-18 09:11 | HHI.PR ---
Subjective Remarks Follow-up patellar fracture. She is doing okay pain under control. She is cleared for discharge by orthopedic surgery. Discussed with RN Objective Vitals Vital Signs Date Time Temp Pulse Resp B/P (MAP) Pulse Ox O2 Delivery O2 Flow Rate FiO2 02/18/17 07:25 96.8 60 16 138/64 (88) 95 02/18/17 04:00 97.4 67 17 119/64 (82) 96 02/18/17 03:58 62 02/18/17 00:45 64 02/18/17 00:00 96.5 68 16 123/65 (84) 95 02/17/17 20:00 97.6 64 16 105/79 (88) 97 02/17/17 19:43 77 02/17/17 17:05 97 Nasal Cannula 2.00 02/17/17 16:30 97.2 120 16 125/78 (94) 98 02/17/17 16:15 97.6 60 16 148/75 (99) 97 Nasal Cannula 2 02/17/17 16:00 59 16 147/70 (95) 96 Nasal Cannula 2 02/17/17 15:45 57 16 150/73 (98) 95 Nasal Cannula 2 02/17/17 15:30 59 16 156/78 (104) 95 Nasal Cannula 2 02/17/17 15:15 58 16 157/81 (106) 98 Nasal Cannula 3 02/17/17 15:00 62 17 165/79 (107) 96 Nasal Cannula 3 02/17/17 14:50 69 17 160/77 (104) 95 Nasal Cannula 3 02/17/17 14:44 97.5 71 18 174/78 (110) 98 Simple Mask 7 02/17/17 12:00 97.8 60 16 115/65 (82) 98 02/17/17 09:20 58 I/O 02/17/17 02/17/17 02/17/17 02/18/17 02/18/17 02/18/17 06:59 14:59 22:59 06:59 14:59 22:59 Intake Total 1000 ml 480 ml 600 ml Output Total 50 ml Balance 950 ml 480 ml 600 ml Intake Oral 480 ml 600 ml IV Total 1000 ml Estimated Blood Loss 50 ml # Voids 0 2 Result Diagram: 02/17/17 0854 02/17/17 0854 Imaging Last Impressions Knee X-Ray 02/17/17 0000 Signed Impressions: Service Date/Time: February 14:09 - CONCLUSION: Open reduction and internal fixation of patellar fracture as above. Albert Corey MD Lower Extremity Ultrasound 02/16/17 1641 Signed Impressions: Service Date/Time: Thursday, February 16, 2017 17:30 - CONCLUSION: 1. No evidence of deep venous thrombosis within the right lower extremity. 2. 2.1 x 0.9 x 1.8 cm right popliteal cyst. Anjum Noguera MD Chest X-Ray 02/16/17 0000 Signed Impressions: Service Date/Time: Thursday, February 16, 2017 19:39 - CONCLUSION: No acute disease. Anjum Noguera MD Objective Remarks GENERAL: This is a well-nourished, well-developed patient, in no apparent distress. SKIN: No rashes, ecchymoses or lesions. Cool and dry. CARDIOVASCULAR: Regular rate and rhythm without murmurs, gallops, or rubs. RESPIRATORY: Clear to auscultation. Breath sounds equal bilaterally. No wheezes , rales, or rhonchi. GASTROINTESTINAL: Abdomen soft, non-tender, nondistended. No guarding. MUSCULOSKELETAL: Extremities without clubbing, cyanosis, or edema. Right knee in immobilizer NEUROLOGICAL: Awake and alert. Cranial nerves II through XII intact. Motor and sensory grossly within normal limits. Five out of 5 muscle strength in all muscle groups. Normal speech. Procedures ORIF right patella A/P Problem List: (1) Transverse fracture of patella ICD Code: S82.033A - Displaced transverse fracture of unspecified patella, initial encounter for closed fracture Status: Acute Assessment and Plan This is a 56-year-old female who complained of right knee pain after she slipped and fell on her right knee. Imaging study shows patella fracture Right patella fracture status post fall. Doing okay after ORIF. Continue postoperative care with PT 50% weight-bearing right lower extremity, Lortab and DVT prophylaxis with aspirin per orthopedic surgery. Bipolar disorder. Stable continue Lamictal, Topamax, Celexa and Remeron Hyperlipidemia. Stable continue Pravachol. Hypertension. Stable continue metoprolol Hypothyroidism. Stable continue Synthroid Tobacco abuse. Counseled. Nicotinic patch Discharge Planning Discharge patient to home Condition on discharge: Improved Regular Diet as tolerated Ad Toma activity no driving Rx written: Aspirin and Lortab Follow-up with primary care physician and orthopedic surgery Problem Qualifiers (1) Transverse fracture of patella: Qualified Codes: S82.031A - Displaced transverse fracture of right patella, initial encounter for closed fracture Luis M Vines MD Feb 18, 2017 09:11
[2017-02-18] MEDS: NICOTINE 21 MG/24 HR PATCH T-DERMAL SCH (09:49)
[2017-02-18] MEDS: DOCUSATE SODIUM 50 MG/SENNA 8.6 MG TAB PO SCH (09:49)
[2017-02-18] MEDS: ASPIRIN EC 325 MG TABEC PO SCH (09:50)
[2017-02-18] MEDS: lamoTRIgine 100 MG TAB PO SCH (09:50)
[2017-02-18] MEDS: TOPIRAMATE 100 MG TAB PO SCH (09:50)
[2017-02-18] MEDS: METOPROLOL TARTRATE 25 MG TAB PO SCH (09:50)
[2017-02-18] MEDS: CALCIUM/VITAMIN D 250 MG/125 U TAB PO SCH ×3 (09:50→17:36)
[2017-02-18] MEDS: SODIUM CHLORIDE 0.9% FLUSH 10 ML FLUSH IV FLUSH SCH (09:51)
== END 2017-02-18 19:02 | disposition home health service (06) | DRG 517 ==
LOC: PHED 16:16 → PHEDA 19:25 → N06B 02-17 00:02
PROVIDERS: ADMIT Internal Medicine; ATTEND Internal Medicine
PROC: 0QSD04Z Reposition Right Patella with Internal Fixation Device, Open Approach (ICD-10-PCS; principal; 2017-02-17 13:00)
DX: S82.041A Displaced comminuted fracture of right patella, initial encounter for closed fracture (principal); W17.89XA Other fall from one level to another, initial encounter; I10 Essential (primary) hypertension; E03.9 Hypothyroidism, unspecified; F31.9 Bipolar disorder, unspecified; E78.5 Hyperlipidemia, unspecified; F17.210 Nicotine dependence, cigarettes, uncomplicated
CPT/HCPCS: 71010; 73560; 73564; 76000; 80048; 85025; 85610; 85730; 93005; 93971; 94150; C1713; J0131; J1580; J2270; J7120